=== PATIENT | male | born 1985 | race Caucasian/White ===

== ENCOUNTER 2016-12-30 16:44 | Emergency (ER) | payer SELFPAY ==
[2016-12-30 21:07] LABS: UA SPECIFIC GRAVITY 1.025 (1.005-1.035); microscopic required? YES; urine erythrocyte NEGATIVE (NEGATIVE)
[2016-12-30 21:13] LABS: BASOPHIL % 0.4 % (0-2); PLATELET COUNT 207 x10^3mcL (130-400); RED CELL DISTRIBUTION WIDTH 13.3 % (11.5-14.5)
[2016-12-30 21:19] LABS: CALCIUM 9.3 mg/dL (8.5-10.1); CARBON DIOXIDE 28.5 mmol/L (21-32); CHLORIDE SERUM 99 mmol/L (98-107); GFR1 > 60 mL/min; GLUCOSE SERUM 102 mg/dL (74-106); POTASSIUM SERUM 3.9 mmol/L (3.5-5.1); SODIUM SERUM 138 mmol/L (136-145)
[2016-12-30 21:21] LABS: AMPHETAMINE QUAL UR NONE DETECTED (NEG <=1000)
[2016-12-30 21:23] LABS: ALKALINE PHOSPHATASE 57 U/L (46-116); ALT/SGPT 23 U/L (16-63); AMYLASE 75 U/L (25-115); AST/SGOT 23 U/L (15-37); LIPASE 124 IU/L (73-393); TOTAL PROTEIN, SERUM 7.1 g/dL (6.4-8.2)
[2016-12-31 00:02] VITALS: BP 93/60
== END 2016-12-31 00:02 | disposition home or self-care (01) ==
LOC: ED 16:44
PROVIDERS: Emergency Medicine
DX: F12.929 Cannabis use, unspecified with intoxication, unspecified (principal); K92.0 Hematemesis
CPT/HCPCS: G0480; J2405; J3490; J7030

== ENCOUNTER 2017-05-03 11:14 | Emergency (ER) | payer MEDICAID ==
[2017-05-03 12:29] LABS: BASOPHIL % 0.1 % (0-2); PLATELET COUNT 284 x10^3mcL (130-400); RED CELL DISTRIBUTION WIDTH 12.9 % (11.5-14.5)
[2017-05-03 12:38] LABS: CARBON DIOXIDE 30.4 mmol/L (21-32); CHLORIDE SERUM 99 mmol/L (98-107); CREATININE SERUM 1.1 mg/dL (0.7-1.3); GFR1 > 60 mL/min; GLUCOSE SERUM 124 mg/dL (74-106); POTASSIUM SERUM 3.9 mmol/L (3.5-5.1); SODIUM SERUM 137 mmol/L (136-145)
[2017-05-03 12:42] LABS: ALBUMIN 4.6 g/dL (3.4-5.0); ALKALINE PHOSPHATASE 67 U/L (46-116); ALT/SGPT 31 U/L (16-63); AST/SGOT 30 U/L (15-37); BILIRUBIN TOTAL 1.91 mg/dL (0.20-1.00); LIPASE 116 IU/L (73-393); TOTAL PROTEIN, SERUM 8.2 g/dL (6.4-8.2)
[2017-05-03 12:48] LABS: UA SPECIFIC GRAVITY 1.025 (1.005-1.035); microscopic required? YES; urine erythrocyte NEGATIVE (NEGATIVE)
[2017-05-03 15:39] VITALS: BP 109/59
== END 2017-05-03 15:40 | disposition home or self-care (01) ==
LOC: ED 11:14
PROVIDERS: Emergency Medicine
DX: K29.70 Gastritis, unspecified, without bleeding (principal)
CPT/HCPCS: J1170; J7030; Q0162

== ENCOUNTER 2017-05-04 04:49 | Inpatient (IN) | payer MEDICAID ==
[~2017-05-04] VITALS: Ht 175.3 cm; Wt 57.6 kg
[2017-05-04 05:43] LABS: BASOPHIL % 0.7 % (0-2); PLATELET COUNT 232 x10^3mcL (130-400); RED CELL DISTRIBUTION WIDTH 12.7 % (11.5-14.5)
[2017-05-04 05:52] LABS: CALCIUM 8.7 mg/dL (8.5-10.1); CARBON DIOXIDE 28.7 mmol/L (21-32); CHLORIDE SERUM 105 mmol/L (98-107); GFR1 > 60 mL/min; GLUCOSE SERUM 101 mg/dL (74-106); POTASSIUM SERUM 3.5 mmol/L (3.5-5.1); SODIUM SERUM 142 mmol/L (136-145)
[2017-05-04 05:57] LABS: ALBUMIN 3.9 g/dL (3.4-5.0); ALKALINE PHOSPHATASE 53 U/L (46-116); ALT/SGPT 28 U/L (16-63); AST/SGOT 41 U/L (15-37); BILIRUBIN TOTAL 2.58 mg/dL (0.20-1.00); LIPASE 124 IU/L (73-393); TOTAL PROTEIN, SERUM 6.9 g/dL (6.4-8.2)
[2017-05-04 06:46] LABS: AMPHETAMINE QUAL UR NONE DETECTED (NEG <=1000)
[2017-05-04 10:57] VITALS: BP 128/85
[2017-05-04 11:10] LABS: T3 TOTAL 1.09 ng/mL
[2017-05-04 11:20] LABS: MAGNESIUM 2.1 mg/dL (1.8-2.4); PHOSPHOROUS 1.8 mg/dL (2.5-4.9)
[2017-05-04 11:21] LABS: CHOLESTEROL/HDL RATIO 2.1
[2017-05-04 11:41] LABS: FREE T4 1.62 ng/dL (0.76-1.46); FREE THYROXINE INDEX 3.8 ug/dL (1.4-4.5); T4(THYROXINE) 10.5 ug/dL (4.7-13.3)
[2017-05-04 14:18] VITALS: BP 100/55
[2017-05-04 16:51] VITALS: BP 106/74
[2017-05-04 17:16] VITALS: Ht 175.3 cm; Wt 57.6 kg
[2017-05-04 21:13] VITALS: BP 103/59
[2017-05-04 23:33] LABS: microscopic required? NO
[2017-05-04 23:37] LABS: UA SPECIFIC GRAVITY 1.015 (1.005-1.035); urine erythrocyte NEGATIVE (NEGATIVE)
[2017-05-05] VITALS (7 sets, daily range): BP systolic 96–123; BP diastolic 55–78
[2017-05-05 06:11] LABS: PLATELET COUNT 173 x10^3mcL (130-400); RED CELL DISTRIBUTION WIDTH 12.5 % (11.5-14.5)
[2017-05-05 06:22] LABS: CALCIUM 8.1 mg/dL (8.5-10.1); CHLORIDE SERUM 109 mmol/L (98-107); CREATININE SERUM 0.9 mg/dL (0.7-1.3); GFR1 > 60 mL/min; GLUCOSE SERUM 94 mg/dL (74-106); MAGNESIUM 1.8 mg/dL (1.8-2.4); PHOSPHOROUS 2.6 mg/dL (2.5-4.9); POTASSIUM SERUM 3.8 mmol/L (3.5-5.1); SODIUM SERUM 142 mmol/L (136-145)
[2017-05-06 05:23] VITALS: BP 109/70
[2017-05-06 06:18] LABS: BASOPHIL % 1.4 % (0-2); PLATELET COUNT 194 x10^3mcL (130-400); RED CELL DISTRIBUTION WIDTH 12.4 % (11.5-14.5)
[2017-05-06 06:38] LABS: CALCIUM 8.2 mg/dL (8.5-10.1); CARBON DIOXIDE 29.3 mmol/L (21-32); CHLORIDE SERUM 106 mmol/L (98-107); CREATININE SERUM 0.9 mg/dL (0.7-1.3); GFR1 > 60 mL/min; GLUCOSE SERUM 83 mg/dL (74-106); POTASSIUM SERUM 3.7 mmol/L (3.5-5.1); SODIUM SERUM 141 mmol/L (136-145)
[2017-05-06 10:58] VITALS: BP 117/77
[2017-05-06] MEDS ORDERED: REG5 PO (13:04)
[2017-05-06] MEDS ORDERED: OMEPRAZOLE20 M3 PO (13:05)
[2017-05-06 13:31] VITALS: BP 111/72
[2017-05-06 13:33] VITALS: BP 111/72
[2017-05-06] MEDS ORDERED: AMITIZA24 MC1 PO (14:09)
[2017-05-06] MEDS ORDERED: METAMUCIL660 GM PO (14:09)
[2017-05-06] MEDS ORDERED: ELA25 PO (14:09)
== END 2017-05-06 15:08 | disposition home or self-care (01) | DRG 254 ==
LOC: ED 04:49 → DU 07:58 → MU 07:58 → DU 09:37 → MU 05-05 09:08
PROVIDERS: Emergency Medicine; Internal Medicine Gastroenterology; ADMIT Student in an Organized Health Care Education/Training Program
PROC: 0DB68ZX Excision of Stomach, Via Natural or Artificial Opening Endoscopic, Diagnostic (ICD-10-PCS; principal; 2017-05-06 09:15)
PROC: 0DJD8ZZ Inspection of Lower Intestinal Tract, Via Natural or Artificial Opening Endoscopic (ICD-10-PCS; 2017-05-06 09:15)
DX: K58.9 Irritable bowel syndrome, unspecified (principal); N17.0 Acute kidney failure with tubular necrosis; K64.8 Other hemorrhoids; F12.10 Cannabis abuse, uncomplicated; E80.6 Other disorders of bilirubin metabolism; Z68.1 Body mass index [BMI] 19.9 or less, adult
CPT/HCPCS: 43235; 45378; 83880; 84439; C9113; J0295; J0696; J1170; J1200; J1610; J2250; J2270; J2310; J2405; J2550; J3010; J3490; J7030; Q0092; Q9966; Q9967

== ENCOUNTER 2017-05-12 16:47 | Emergency (ER) | payer MEDICAID ==
[~2017-05-12 16:47] MED LIST: AMITIZA24 MC1 PO; ELA25 PO; METAMUCIL660 GM PO; OMEPRAZOLE20 M3 PO; REG5 PO
[2017-05-12 19:20] LABS: BASOPHIL % 0.4 % (0-2); PLATELET COUNT 259 x10^3mcL (130-400); RED CELL DISTRIBUTION WIDTH 12.4 % (11.5-14.5)
[2017-05-12 19:27] LABS: CALCIUM 9.4 mg/dL (8.5-10.1); CARBON DIOXIDE 29.6 mmol/L (21-32); CHLORIDE SERUM 99 mmol/L (98-107); CREATININE SERUM 0.7 mg/dL (0.7-1.3); GFR1 > 60 mL/min; GLUCOSE SERUM 117 mg/dL (74-106); POTASSIUM SERUM 3.8 mmol/L (3.5-5.1); SODIUM SERUM 136 mmol/L (136-145)
[2017-05-12 19:32] LABS: ALBUMIN 4.2 g/dL (3.4-5.0); ALKALINE PHOSPHATASE 59 U/L (46-116); ALT/SGPT 35 U/L (16-63); AMYLASE 98 U/L (25-115); AST/SGOT 26 U/L (15-37); BILIRUBIN TOTAL 1.67 mg/dL (0.20-1.00); LIPASE 141 IU/L (73-393); TOTAL PROTEIN, SERUM 7.6 g/dL (6.4-8.2)
[2017-05-12 20:10] VITALS: BP 97/60
== END 2017-05-12 20:10 | disposition home or self-care (01) ==
LOC: ED 16:47
PROVIDERS: Emergency Medicine
DX: R10.13 Epigastric pain (principal)
CPT/HCPCS: 36415; J1170; Q0162

== ENCOUNTER 2017-09-30 18:29 | Emergency (ER) | payer SELFPAY ==
[~2017-09-30] VITALS: Ht 175.3 cm; Wt 59.4 kg
[2017-09-30 18:36] VITALS: Ht 175.3 cm; Wt 59.4 kg
[2017-09-30 20:09] LABS: PLATELET COUNT 219 x10^3mcL (130-400)
[2017-09-30 20:11] LABS: BASOPHIL % 0 % (0-2)
[2017-09-30 20:19] LABS: CALCIUM 9.3 mg/dL (8.5-10.1); CARBON DIOXIDE 25.8 mmol/L (21-32); CHLORIDE SERUM 100 mmol/L (98-107); CREATININE SERUM 0.9 mg/dL (0.7-1.3); GFR1 > 60 mL/min; GLUCOSE SERUM 146 mg/dL (74-106); POTASSIUM SERUM 3.9 mmol/L (3.5-5.1); SODIUM SERUM 133 mmol/L (136-145)
[2017-09-30 20:24] LABS: ALBUMIN 4.4 g/dL (3.4-5.0); ALKALINE PHOSPHATASE 56 U/L (46-116); ALT/SGPT 33 U/L (16-63); AST/SGOT 24 U/L (15-37); BILIRUBIN TOTAL 1.1 mg/dL (0.20-1.00); LIPASE 48 IU/L (73-393); TOTAL PROTEIN, SERUM 7.6 g/dL (6.4-8.2)
[2017-09-30 22:35] LABS: AMPHETAMINE QUAL UR NONE DETECTED (NEG <=1000)
[2017-10-01 00:07] VITALS: BP 117/85
== END 2017-10-01 00:07 | disposition home or self-care (01) ==
LOC: ED 18:29
PROVIDERS: Emergency Medicine
DX: R91.8 Other nonspecific abnormal finding of lung field (principal); R10.13 Epigastric pain; R11.10 Vomiting, unspecified
CPT/HCPCS: 87804; J2270; J2405; J7030; Q0092

== ENCOUNTER 2017-10-02 11:38 | Emergency (ER) | payer SELFPAY ==
[~2017-10-02] VITALS: Ht 188 cm; Wt 58.5 kg
[2017-10-02 12:03] VITALS: Ht 188 cm; Wt 58.5 kg
[2017-10-02 14:44] LABS: BASOPHIL % 0.3 % (0-2); PLATELET COUNT 230 x10^3mcL (130-400)
[2017-10-02 14:49] LABS: ALBUMIN 4.4 g/dL (3.4-5.0); ALKALINE PHOSPHATASE 58 U/L (46-116); ALT/SGPT 28 U/L (16-63); AMYLASE 80 U/L (25-115); AST/SGOT 17 U/L (15-37); CALCIUM 9.1 mg/dL (8.5-10.1); CARBON DIOXIDE 28.7 mmol/L (21-32); CHLORIDE SERUM 96 mmol/L (98-107); CREATININE SERUM 0.9 mg/dL (0.7-1.3); GFR1 > 60 mL/min; GLUCOSE SERUM 92 mg/dL (74-106); LIPASE 95 IU/L (73-393); SODIUM SERUM 135 mmol/L (136-145); TOTAL PROTEIN, SERUM 7.6 g/dL (6.4-8.2)
[2017-10-02 15:51] LABS: UA SPECIFIC GRAVITY 1.015 (1.005-1.035); microscopic required? YES; urine erythrocyte NEGATIVE (NEGATIVE)
[2017-10-02 16:28] VITALS: BP 120/78
== END 2017-10-02 16:28 | disposition home or self-care (01) ==
LOC: ED 11:38
PROVIDERS: Emergency Medicine
DX: E87.6 Hypokalemia (principal); F12.188 Cannabis abuse with other cannabis-induced disorder; R11.10 Vomiting, unspecified
CPT/HCPCS: 83880; J1630; J2060; J3490; J7030

== ENCOUNTER 2018-05-31 07:44 | Emergency (ER) | payer SELFPAY ==
[~2018-05-31] VITALS: Ht 175.3 cm; Wt 64.9 kg
[2018-05-31 07:52] VITALS: Ht 175.3 cm; Wt 64.9 kg
[2018-05-31 08:26] LABS: CALCIUM 9.3 mg/dL (8.5-10.1); CARBON DIOXIDE 30.4 mmol/L (21-32); CHLORIDE SERUM 99 mmol/L (98-107); GFR1 > 60 mL/min; GLUCOSE SERUM 118 mg/dL (74-106); POTASSIUM SERUM 3.7 mmol/L (3.5-5.1); SODIUM SERUM 136 mmol/L (136-145)
[2018-05-31 08:31] LABS: ALBUMIN 4.6 g/dL (3.4-5.0); ALKALINE PHOSPHATASE 62 U/L (46-116); ALT/SGPT 24 U/L (16-63); AST/SGOT 16 U/L (15-37); BILIRUBIN TOTAL 1.82 mg/dL (0.20-1.00); LIPASE 237 IU/L (73-393)
[2018-05-31 09:51] LABS: BASOPHIL % 0.3 % (0-2); PLATELET COUNT 268 x10^3mcL (130-400); RED CELL DISTRIBUTION WIDTH 12.9 % (11.5-14.5)
[2018-05-31 11:42] VITALS: BP 103/69
== END 2018-05-31 11:42 | disposition home or self-care (01) ==
LOC: ED 07:44
PROVIDERS: Emergency Medicine
DX: R11.10 Vomiting, unspecified (principal); E86.0 Dehydration; R10.13 Epigastric pain
CPT/HCPCS: 99406; J1630; J2405; J7030; Q0092; Q0162

== ENCOUNTER 2018-07-04 10:12 | Inpatient (IN) | payer MEDICAID ==
[~2018-07-04] VITALS: Ht 177.8 cm; Wt 62.8 kg
[2018-07-04 10:29] VITALS: Ht 177.8 cm; Wt 62.8 kg
[2018-07-04 11:09] LABS: BASOPHIL % 0.2 % (0-2); RED CELL DISTRIBUTION WIDTH 12.6 % (11.5-14.5)
[2018-07-04 11:11] LABS: PLATELET COUNT 100 x10^3mcL (130-400)
[2018-07-04 11:35] LABS: CARBON DIOXIDE 24.7 mmol/L (21-32); CHLORIDE SERUM 103 mmol/L (98-107); CREATININE SERUM 0.8 mg/dL (0.7-1.3); GFR1 > 60 mL/min; GLUCOSE SERUM 135 mg/dL (74-106); POTASSIUM SERUM 3.7 mmol/L (3.5-5.1); SODIUM SERUM 137 mmol/L (136-145)
[2018-07-04 11:40] LABS: ALBUMIN 4.3 g/dL (3.4-5.0); ALKALINE PHOSPHATASE 55 U/L (46-116); ALT/SGPT 5 U/L (16-63); AST/SGOT 25 U/L (15-37); LIPASE 95 IU/L (73-393); TOTAL PROTEIN, SERUM 7.6 g/dL (6.4-8.2)
[2018-07-04 14:58] VITALS: BP 121/79
[2018-07-04 21:16] VITALS: BP 130/80
[2018-07-05 05:29] VITALS: BP 143/80
[2018-07-05 06:42] LABS: CALCIUM 8.4 mg/dL (8.5-10.1); CARBON DIOXIDE 24.7 mmol/L (21-32); CHLORIDE SERUM 102 mmol/L (98-107); CREATININE SERUM 0.8 mg/dL (0.7-1.3); GFR1 > 60 mL/min; GLUCOSE SERUM 118 mg/dL (74-106); POTASSIUM SERUM 3.4 mmol/L (3.5-5.1); SODIUM SERUM 134 mmol/L (136-145)
[2018-07-05 06:49] LABS: BASOPHIL % 0.2 % (0-2); PLATELET COUNT 215 x10^3mcL (130-400)
[2018-07-05 08:59] VITALS: BP 99/63
[2018-07-05] MEDS ORDERED: GOOD SENSE OMEP20 MG (10:41)
[2018-07-05] MEDS ORDERED: GOOD SENSE OMEP20 MG PO (10:41)
[2018-07-05 10:50] VITALS: BP 99/63
== END 2018-07-05 12:14 | disposition home or self-care (01) | DRG 243 ==
LOC: ED 10:12 → DU 13:29
PROVIDERS: Emergency Medicine; ADMIT Internal Medicine
DX: K21.9 Gastro-esophageal reflux disease without esophagitis (principal); F10.10 Alcohol abuse, uncomplicated; R00.1 Bradycardia, unspecified; F15.90 Other stimulant use, unspecified, uncomplicated; F12.10 Cannabis abuse, uncomplicated
CPT/HCPCS: 90658; C9113; J1885; J2270; J2405; J2550; J7030; Q0092

== ENCOUNTER 2018-08-22 09:20 | Emergency (ER) | payer MEDICAID ==
[~2018-08-22] VITALS: Ht 167.6 cm; Wt 65.8 kg
[~2018-08-22 09:20] MED LIST changes: +GOOD SENSE OMEP20 MG; +GOOD SENSE OMEP20 MG PO
[2018-08-22 09:37] VITALS: Ht 167.6 cm; Wt 65.8 kg
[2018-08-22 10:54] LABS: CALCIUM 9.2 mg/dL (8.5-10.1); CARBON DIOXIDE 28.1 mmol/L (21-32); CHLORIDE SERUM 104 mmol/L (98-107); CREATININE SERUM 0.9 mg/dL (0.7-1.3); GFR1 > 60 mL/min; GLUCOSE SERUM 136 mg/dL (74-106); POTASSIUM SERUM 4.1 mmol/L (3.5-5.1); SODIUM SERUM 139 mmol/L (136-145)
[2018-08-22 10:59] LABS: ALBUMIN 4.3 g/dL (3.4-5.0); ALKALINE PHOSPHATASE 59 U/L (46-116); ALT/SGPT 24 U/L (16-63); AST/SGOT 20 U/L (15-37); BILIRUBIN TOTAL 1.6 mg/dL (0.20-1.00); LIPASE 85 IU/L (73-393); TOTAL PROTEIN, SERUM 7.5 g/dL (6.4-8.2)
[2018-08-22 11:02] LABS: BASOPHIL % 0.5 % (0-2); PLATELET COUNT 218 x10^3mcL (130-400); RED CELL DISTRIBUTION WIDTH 13.1 % (11.5-14.5)
[2018-08-22 13:37] VITALS: BP 119/65
== END 2018-08-22 13:35 | disposition home or self-care (01) ==
LOC: ED 09:20
PROVIDERS: Emergency Medicine
DX: F12.90 Cannabis use, unspecified, uncomplicated (principal); R11.2 Nausea with vomiting, unspecified
CPT/HCPCS: J1630; J2270; J2405; J7030

== ENCOUNTER 2018-08-24 08:32 | Emergency (ER) | payer MEDICAID ==
[~2018-08-24] VITALS: Ht 175.3 cm; Wt 64.6 kg
[2018-08-24 08:37] VITALS: Ht 175.3 cm; Wt 64.6 kg
[2018-08-24 11:17] VITALS: BP 136/75
== END 2018-08-24 11:17 | disposition home or self-care (01) ==
LOC: ED 08:32
DX: K29.70 Gastritis, unspecified, without bleeding (principal); F12.19 Cannabis abuse with unspecified cannabis-induced disorder
CPT/HCPCS: J1630; J2765; Q0162

== ENCOUNTER 2018-08-28 09:36 | Emergency (ER) | payer MEDICAID ==
[~2018-08-28] VITALS: Ht 188 cm; Wt 65.5 kg
[2018-08-28 09:43] VITALS: Ht 188 cm; Wt 65.5 kg
[2018-08-28 10:56] LABS: BASOPHIL % 1.2 % (0-2); PLATELET COUNT 244 x10^3mcL (130-400); RED CELL DISTRIBUTION WIDTH 12.6 % (11.5-14.5)
[2018-08-28 11:15] LABS: CALCIUM 9.3 mg/dL (8.5-10.1); CARBON DIOXIDE 27.2 mmol/L (21-32); CHLORIDE SERUM 98 mmol/L (98-107); GFR1 > 60 mL/min; GLUCOSE SERUM 95 mg/dL (74-106); POTASSIUM SERUM 3.2 mmol/L (3.5-5.1); SODIUM SERUM 135 mmol/L (136-145)
[2018-08-28 11:20] LABS: ALBUMIN 4.4 g/dL (3.4-5.0); ALKALINE PHOSPHATASE 55 U/L (46-116); ALT/SGPT 20 U/L (16-63); AMYLASE 70 U/L (25-115); AST/SGOT 18 U/L (15-37); BILIRUBIN TOTAL 3.1 mg/dL (0.20-1.00); LIPASE 97 IU/L (73-393); TOTAL PROTEIN, SERUM 7.3 g/dL (6.4-8.2)
[2018-08-28 12:43] VITALS: BP 140/78
== END 2018-08-28 12:43 | disposition home or self-care (01) ==
LOC: ED 09:36
PROVIDERS: Specialist
DX: G89.29 Other chronic pain (principal); R10.13 Epigastric pain; R11.2 Nausea with vomiting, unspecified; F12.90 Cannabis use, unspecified, uncomplicated
CPT/HCPCS: J1630; J1885; J2405; J3490; J7030

== ENCOUNTER 2019-03-24 11:24 | Emergency (ER) | payer MEDICAID ==
[~2019-03-24] VITALS: Ht 162.6 cm; Wt 64.9 kg
[2019-03-24 11:32] VITALS: Ht 162.6 cm; Wt 64.9 kg
[2019-03-24 13:11] VITALS: BP 120/81
== END 2019-03-24 13:11 | disposition home or self-care (01) ==
LOC: ED 11:24
DX: R10.13 Epigastric pain (principal); R11.2 Nausea with vomiting, unspecified
CPT/HCPCS: J0780

== ENCOUNTER 2019-03-25 17:59 | Emergency (ER) | payer MEDICAID ==
[2019-03-25 19:02] LABS: BASOPHIL % 0.6 % (0-2); PLATELET COUNT 215 x10^3mcL (130-400); RED CELL DISTRIBUTION WIDTH 12.7 % (11.5-14.5)
[2019-03-25 19:10] LABS: CHLORIDE SERUM 101 mmol/L (98-107); GFR1 > 60 mL/min; SODIUM SERUM 138 mmol/L (136-145)
[2019-03-25 19:16] LABS: ALBUMIN 4.5 g/dL (3.4-5.0); ALKALINE PHOSPHATASE 70 U/L (46-116); ALT/SGPT 18 U/L (16-63); AST/SGOT 19 U/L (15-37); BILIRUBIN TOTAL 2.32 mg/dL (0.20-1.00); CALCIUM 9.1 mg/dL (8.5-10.1); CARBON DIOXIDE 29.6 mmol/L (21-32); GLUCOSE SERUM 103 mg/dL (74-106); LIPASE 78 IU/L (73-393); TOTAL PROTEIN, SERUM 7.7 g/dL (6.4-8.2)
[2019-03-25 23:17] VITALS: BP 100/61
== END 2019-03-25 23:17 | disposition home or self-care (01) ==
LOC: ED 17:59
PROVIDERS: Emergency Medicine
DX: K29.70 Gastritis, unspecified, without bleeding (principal)
CPT/HCPCS: J2270; J2405; J3010; J3490; J7030; Q0092; Q9967

== ENCOUNTER 2019-03-28 09:01 | Emergency (ER) | payer MEDICAID ==
[~2019-03-28] VITALS: Ht 170.2 cm; Wt 64.0 kg
[2019-03-28 09:04] VITALS: Ht 170.2 cm; Wt 64.0 kg
[2019-03-28 09:48] LABS: CALCIUM 8.9 mg/dL (8.5-10.1); CARBON DIOXIDE 31.1 mmol/L (21-32); CHLORIDE SERUM 101 mmol/L (98-107); CREATININE SERUM 1.1 mg/dL (0.7-1.3); GFR1 > 60 mL/min; GLUCOSE SERUM 105 mg/dL (74-106); POTASSIUM SERUM 3.8 mmol/L (3.5-5.1); SODIUM SERUM 138 mmol/L (136-145)
[2019-03-28 09:52] LABS: BASOPHIL % 0.6 % (0-2); PLATELET COUNT 238 x10^3mcL (130-400); RED CELL DISTRIBUTION WIDTH 12.7 % (11.5-14.5)
[2019-03-28 09:53] LABS: ALBUMIN 4.2 g/dL (3.4-5.0); ALKALINE PHOSPHATASE 68 U/L (46-116); ALT/SGPT 20 U/L (16-63); AMYLASE 76 U/L (25-115); AST/SGOT 18 U/L (15-37); BILIRUBIN TOTAL 3.6 mg/dL (0.20-1.00); LIPASE 102 IU/L (73-393); TOTAL PROTEIN, SERUM 6.9 g/dL (6.4-8.2)
[2019-03-28 11:33] VITALS: BP 122/65
== END 2019-03-28 11:33 | disposition home or self-care (01) ==
LOC: ED 09:01
PROVIDERS: Specialist
DX: R10.13 Epigastric pain (principal); R11.10 Vomiting, unspecified
CPT/HCPCS: J1885; J2405; J3490; J7030

== ENCOUNTER 2019-06-27 16:18 | Emergency (ER) | payer MEDICAID ==
[~2019-06-27] VITALS: Ht 185.4 cm; Wt 60.8 kg
[2019-06-27 16:54] VITALS: Ht 185.4 cm; Wt 60.8 kg
[2019-06-27 17:48] LABS: BASOPHIL % 0.2 % (0-2); PLATELET COUNT 267 x10^3mcL (130-400); RED CELL DISTRIBUTION WIDTH 12.9 % (11.5-14.5)
[2019-06-27 17:54] LABS: CALCIUM 9.9 mg/dL (8.5-10.1); CARBON DIOXIDE 29.8 mmol/L (21-32); CHLORIDE SERUM 97 mmol/L (98-107); GFR1 > 60 mL/min; GLUCOSE SERUM 106 mg/dL (74-106); POTASSIUM SERUM 3.8 mmol/L (3.5-5.1); SODIUM SERUM 132 mmol/L (136-145)
[2019-06-27 18:11] LABS: ALBUMIN 4.6 g/dL (3.4-5.0); ALKALINE PHOSPHATASE 60 U/L (46-116); ALT/SGPT 22 U/L (16-63); AMYLASE 79 U/L (25-115); AST/SGOT 18 U/L (15-37); BILIRUBIN TOTAL 2.5 mg/dL (0.20-1.00); LIPASE 77 IU/L (73-393)
[2019-06-27 21:11] VITALS: BP 127/76
== END 2019-06-27 21:07 | disposition home or self-care (01) ==
LOC: ED 16:18
PROVIDERS: Emergency Medicine
DX: K29.00 Acute gastritis without bleeding (principal); F12.188 Cannabis abuse with other cannabis-induced disorder
CPT/HCPCS: J2270; J2405; J3490; J7030

== ENCOUNTER 2019-06-28 12:14 | Emergency (ER) | payer MEDICAID ==
[~2019-06-28] VITALS: Ht 177.8 cm; Wt 60.8 kg
[2019-06-28 12:34] VITALS: Ht 177.8 cm; Wt 60.8 kg
[2019-06-28 13:18] LABS: BASOPHIL % 0.3 % (0-2); PLATELET COUNT 207 x10^3mcL (130-400); RED CELL DISTRIBUTION WIDTH 12.7 % (11.5-14.5)
[2019-06-28 13:28] LABS: microscopic required? NO
[2019-06-28 13:30] LABS: CALCIUM 8.6 mg/dL (8.5-10.1); CHLORIDE SERUM 100 mmol/L (98-107); CREATININE SERUM 0.9 mg/dL (0.7-1.3); GFR1 > 60 mL/min; GLUCOSE SERUM 95 mg/dL (74-106); POTASSIUM SERUM 3.3 mmol/L (3.5-5.1); SODIUM SERUM 134 mmol/L (136-145)
[2019-06-28 13:35] LABS: ALBUMIN 3.8 g/dL (3.4-5.0); ALKALINE PHOSPHATASE 51 U/L (46-116); ALT/SGPT 19 U/L (16-63); AST/SGOT 12 U/L (15-37); BILIRUBIN TOTAL 3.1 mg/dL (0.20-1.00); LIPASE 87 IU/L (73-393); TOTAL PROTEIN, SERUM 6.6 g/dL (6.4-8.2)
[2019-06-28 14:00] LABS: UA SPECIFIC GRAVITY 1.015 (1.005-1.035); urine erythrocyte NEGATIVE (NEGATIVE)
[2019-06-28 14:06] VITALS: BP 99/52
[2019-06-28 14:20] LABS: AMPHETAMINE QUAL UR NONE DETECTED (See below)
== END 2019-06-28 15:34 | disposition home or self-care (01) ==
LOC: ED 12:14
PROVIDERS: Emergency Medicine
DX: F12.988 Cannabis use, unspecified with other cannabis-induced disorder (principal); R10.13 Epigastric pain
CPT/HCPCS: J1630; J2060; J3490; J7030